=== PATIENT | female | born 1980 | race Caucasian/White ===

== ENCOUNTER 2016-09-23 11:47 | Day surgery (SDC) | payer OTHER ==
[2016-09-16 10:21] LABS: HEMATOCRIT 39.7 % (36.0-47.0); HEMOGLOBIN 12.5 g/dL (12.0-15.5); HGB HCT DIFFERENCE -2.2; MEAN CORPUSCULAR HEMOGLOBIN 27.5 pg (27.0-33.4); MEAN CORPUSCULAR HGB CONC 31.6 g/dL (32.0-36.0); MEAN CORPUSCULAR VOLUME 87 fl (80-97); RED BLOOD COUNT 4.56 10^6/uL (3.72-5.28); RED CELL DISTRIBUTION WIDTH 14.6 % (11.5-14.0); WHITE BLOOD COUNT 12.4 10^3/uL (4.0-10.5)
[2016-09-16 10:54] LABS: ALANINE AMINOTRANSFERASE 26 U/L (9-52); ALBUMIN 3.7 g/dL (3.5-5.0); ALKALINE PHOSPHATASE 101 U/L (38-126); ANION GAP 15 (5-19); ASPARTATE AMINO TRANSFERASE 27 U/L (14-36); BILIRUBIN,TOTAL 0.4 mg/dL (0.2-1.3); BLOOD UREA NITROGEN 9 mg/dL (7-20); CALCIUM 9.5 mg/dL (8.4-10.2); CARBON DIOXIDE 21 mmol/L (22-30); CHLORIDE 104 mmol/L (98-107); GLUCOSE 96 mg/dL (75-110); POTASSIUM 4.3 mmol/L (3.6-5.0); SODIUM 140.4 mmol/L (137-145); TOTAL PROTEIN 7.1 g/dL (6.3-8.2)
--- NOTE | 2016-09-16 16:23 | EKG REPORT ---
SEVERITY:- BORDERLINE ECG - SINUS TACHYCARDIA BORDERLINE T ABNORMALITIES, INFERIOR LEADS : Confirmed by: Dat Box MD 16-Sep-2016 16:23:15
[~2016-09-23 11:47] MED LIST: ACETAMINOPHEN 325 MG TABLET PO PRN; CEFAZOLIN SODIUM 1 GM in DEXTROSE 5%-WATER 50 ML IV PRN; GLYCOPYRROLATE INJ 0.4 MG/2 ML VIAL ONE; LACTATED RINGERS 1000 ML IV PRN; LIDOCAINE 0.5% INJ-PF (5 MG/ML) 50 ML SDV SUBCUT PRN; NEOSTIGMINE METHYLSULFATE 10 MG/10 ML VIAL ONE; ROCURONIUM BROMIDE INJ 50 MG/5 ML VIAL IV ONE; SUCCINYLCHOLINE CHLORIDE INJ 200 MG/10 ML VIAL ONE
[2016-09-23] MEDS ORDERED: BUPIVACAINE HCL 0.25 % INJ/PF (2.5 MG/1 ML) 30 ML VIAL ONE (13:06)
[2016-09-23] MEDS ORDERED: FENTANYL CITRATE INJ/PF 250 MCG/5 ML AMPULE ONE (13:13)
[2016-09-23] MEDS ORDERED: HYDROMORPHONE HCL INJ/PF 2 MG/ML AMPULE ONE (13:13)
[2016-09-23] MEDS ORDERED: MIDAZOLAM 2 MG/2 ML INJ ONE (13:13)
[2016-09-23] MEDS ORDERED: PROPOFOL INJ 200 MG/20 ML VIAL IV ONE (13:14)
[2016-09-23] MEDS ORDERED: MEPERIDINE HCL/PF INJ 25 MG/1 ML DISP.SYRIN IV PRN (14:01)
[2016-09-23] MEDS ORDERED: FENTANYL CITRATE INJ/PF 100 MCG/2 ML AMPUL IV PRN ×3 (14:01)
[2016-09-23] MEDS ORDERED: MORPHINE SULFATE 10 MG/ML INJ IV PRN (14:01)
[2016-09-23] MEDS ORDERED: PROMETHAZINE HCL INJ 25 MG/1 ML VIAL IV PRN (14:01)
[2016-09-23] MEDS ORDERED: ONDANSETRON HCL INJ/PF 4 MG/2 ML SDV ONE ×2 (15:07→15:32)
[2016-09-23] MEDS ORDERED: ONDANSETRON HCL INJ/PF 4 MG/2 ML SDV IV PRN ×2 (15:08→15:19)
[2016-09-23] MEDS ORDERED: DIPHENHYDRAMINE HCL 50 MG/ML VIAL IV PRN (15:08)
[2016-09-23] MEDS ORDERED: METOPROLOL TARTRATE PF/INJ 5 MG/5 ML SDV IV ONE (15:11)
[2016-09-23] MEDS: FENTANYL CITRATE INJ/PF 100 MCG/2 ML AMPUL ONE ×2 (15:19→15:25)
[2016-09-23] MEDS ORDERED: RINGERS SOLUTION,LACTATED 1,000 ML IV PRN (15:19)
[2016-09-23] MEDS ORDERED: OXYCODONE-ACETAMINOPHEN 5-325 MG TABLET PO PRN (15:19)
--- NOTE | 2016-09-23 15:19 | Operative Report ---
Operative Report DATE OF SURGERY: 09/23/16 PREOPERATIVE DIAGNOSIS: Symptomatic cholelithiasis POSTOPERATIVE DIAGNOSIS: Symptomatic cholelithiasis OPERATION: Laparoscopic cholecystectomy SURGEON: ARMANI GALVEZ ANESTHESIA: GA TISSUE REMOVED OR ALTERED: gallbladder COMPLICATIONS: None ESTIMATED BLOOD LOSS: minimal INTRAOPERATIVE FINDINGS: Gallstones PROCEDURE: Informed consent was obtained. Patient was brought to the operating room placed operating table in supine position. After satisfactory induction of general anesthesia, patient's abdomen was prepped and draped in usual sterile fashion. A infraumbilical midline incision was made and dissection carried down to the fascia the peritoneal cavity entered without difficulty. Velasquez trocar was inserted. Pneumoperitoneum produced good patient toleration. 5 mm trocar was placed in the subxiphoid location.Two 5 mm trochars were placed in the right subcostal location. The gallbladder was grasped and retracted anteriorly and cephalad. Mildly fatty and mildly enlarged liver prevented gallbladder retraction over the dome of the liver. The infundibulum of the gallbladder was grasped retracted laterally and inferiorly thus exposing calot' s triangle. The cystic duct gallbladder junction was clearly identified and the cystic duct was clipped and divided. There was some small vessels at calot' s triangle which was clipped and divided. Cystic artery was clipped and divided. The gallbladder was taken off the gallbladder bed using the hook electrocautery technique. The gallbladder was removed with an Endobag through the Velasquez trocar site fascial defect. There was small amount of bile spillage during the case but no stone spillage. The operative field was irrigated and irrigant aspirated out. Hemostasis appeared excellent. All trochars were removed under the direct vision a laparoscope to ensure hemostasis. The Velasquez trocar site fascial defect was closed with interrupted Vicryl sutures. All skin incisions were closed with subcuticular interrupted Monocryl sutures. Marcaine was injected at the port sites. Patient tolerated procedure well no apparent complications and was taken to the recovery area in stable condition.
--- NOTE | 2016-09-23 15:25 | PDOC DISCHARGE SUMMARY ---
Discharge Summary (SDC) - Discharge Final Diagnosis: Symptomatic cholelithiasis. Date of Surgery: 09/23/16 Discharge Date: 09/23/16 Condition: Good Treatment or Instructions: Laparoscopic cholecystectomy. May discharge patient home when met discharge criteria. Stay active at home but avoid strenuous activity. May advance diet to low-fat diet at home. Follow-up with me in 2 weeks. May shower in 2 days. Keep Steri-Strips on. Prescriptions: Oxycodone HCl/Acetaminophen [Percocet 5-325 mg Tablet] 1 tab PO ASDIR PRN #25 tablet PRN Reason: Discharge Diet: As Tolerated Discharge Activity: Activity As Tolerated - Stay active but avoid strenuous activity. May shower in 2 days. Keep Steri-Strips on. Report the Following to Your Physician Immediately: Yellow Skin, Fever over 101 Degrees, Unusual Bleeding, Redness, Drainage-Foul Smelling
[2016-09-23] MEDS ORDERED: OXYCODONE-ACETAMINOPHEN 5-325 MG TABLET ONE (16:16)
[2016-09-23] MEDS ORDERED: PROMETHAZINE HCL INJ 25 MG/1 ML VIAL ONE (17:10)
[2016-09-23 19:12] VITALS: BP 124/88
== END 2016-09-23 19:10 | disposition home or self-care (01) ==
LOC: OROUT 11:47
PROVIDERS: ATTEND Surgery
PROC: 0FT44ZZ Resection of Gallbladder, Percutaneous Endoscopic Approach (ICD-10-PCS; principal; 2016-09-23 13:30)
DX: K80.10 Calculus of gallbladder with chronic cholecystitis without obstruction (principal); I10 Essential (primary) hypertension; E88.81 Metabolic syndrome and other insulin resistance; M10.9 Gout, unspecified; K21.9 Gastro-esophageal reflux disease without esophagitis; J45.909 Unspecified asthma, uncomplicated; M19.90 Unspecified osteoarthritis, unspecified site; E66.9 Obesity, unspecified; Z68.41 Body mass index [BMI] 40.0-44.9, adult
CPT/HCPCS: 93005; 36415; 82962; 85027; 81025; 80053; 88304 ×2; 93010; 47562; J2250; J0690; J3490 ×2; J3010 ×2; J1170; J2550; J0330; J2405; J2704; 790